=== PATIENT | male | born 1985 | race Caucasian/White ===

== ENCOUNTER 2017-01-06 23:04 | Emergency (ER) | payer SELFPAY | END 2017-01-06 23:21 | disposition left against medical advice (07) | LOC: ED 23:04 | DX: M54.9 Dorsalgia, unspecified (principal); Z53.21 Procedure and treatment not carried out due to patient leaving prior to being seen by health care provider ==

== ENCOUNTER 2017-07-08 14:44 | Emergency (ER) | payer OTHER ==
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
[2017-07-08 19:43] VITALS: BP 120/78
== END 2017-07-08 19:43 | disposition home or self-care (01) ==
LOC: ED 14:44
DX: M54.2 Cervicalgia (principal)
CPT/HCPCS: 99282

== ENCOUNTER 2020-12-18 19:11 | Emergency (ER) | payer OTHER ==
[2020-12-18 19:43] VITALS: BP 133/87
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
== END 2020-12-18 22:28 | disposition home or self-care (01) ==
LOC: ED 19:11
DX: S29.012A Strain of muscle and tendon of back wall of thorax, initial encounter (principal); G44.309 Post-traumatic headache, unspecified, not intractable; F17.200 Nicotine dependence, unspecified, uncomplicated; Z79.899 Other long term (current) drug therapy; V49.49XA Driver injured in collision with other motor vehicles in traffic accident, initial encounter; Y92.410 Unspecified street and highway as the place of occurrence of the external cause; Y93.89 Activity, other specified; Y99.8 Other external cause status
CPT/HCPCS: 99282